=== PATIENT | male | born 1975 | race African-American/Black ===

== ENCOUNTER 2018-01-16 15:49 | Emergency (ER) | payer MEDICAID, OTHER ==
[~2018-01-16] VITALS: Ht 167.6 cm; Wt 54.0 kg
[2018-01-16 16:18] VITALS: BP 121/87
== END 2018-01-16 18:03 | disposition home or self-care (01) ==
LOC: ER 16:05
DX: S90.211A Contusion of right great toe with damage to nail, initial encounter (principal); W31.9XXA Contact with unspecified machinery, initial encounter; Y93.B9 Activity, other involving muscle strengthening exercises; Y92.89 Other specified places as the place of occurrence of the external cause; Y99.8 Other external cause status
CPT/HCPCS: 73630